=== PATIENT | male | born 1940 | race Caucasian/White ===

== ENCOUNTER → 2021-03-09 | Day surgery (SDC) | payer MEDICARE, OTHER ==
[~2021-03-09] MED LIST: ARANESP10 MCG/0.4; ASA81BEC PO; CARVEDILOL12.5 MG PO; COREG6.25 MG PO; EYLEA2 MG/0.01 EA. EYE; HYDRALAZINE 5050 MG PO; JANUVIA25 MG PO; LISINOPRIL10 MG PO; NORCO5 PO; NORVASC5 MG PO; OMEGA 3 1,0001 EACH PO; REFRESH CLASSI1 EACH EA. EYE; SODIUM BICARBO650 M3 PO; TORSEMIDE5 MG PO; TRAVATAN Z2.5 ML EA. EYE; TYLENOL 8 HOUR650 MG PO; VELTASSA8.4 GM PO; VISION FORMULA1 EAC1 PO; ZETIA10 MG PO
--- NOTE | ~2021-03-09 | OP ---
[facility] [address] [place] [address] OPERATIVE REPORT Name: ROBINSON SMALLWOOD Room: [facility]#: [id number] Admission: 03/09/21 Attend Phys: Monico Dash Discharge: Date of : 38 Report #: [id number] THIS REPORT FOR: cc: Otis Clifton Gregory DO Patterson,Monico Wright MD ~ DOC #: [id number] Monico Dash MD DATE OF SURGERY: 03/09/2021 PREOPERATIVE DIAGNOSIS: End-stage renal disease. POSTOPERATIVE DIAGNOSIS: End-stage renal disease. PROCEDURE: Laparoscopic placement of tunneled intraperitoneal catheter. SURGEON: Monico Dash MD. ANESTHESIA: General. ESTIMATED BLOOD LOSS: Minimal. SPECIMEN: None. DESCRIPTION OF PROCEDURE: After informed consent was obtained, the patient was brought to the operating room and placed supine. SCDs were placed and working, preoperative antibiotics were administered, general anesthesia was induced. The abdomen was prepped and draped in the usual sterile fashion. A 5 mm incision was made in the left upper quadrant. A 5 mm trocar was placed under direct vision. Pneumoperitoneum was established. A left-sided 5 mm trocar was placed under direct vision. I placed an 8 mm trocar in the left rectus sheath above the umbilicus. A 62 cm Covidien catheter was then placed through the 8 mm trocar. The catheter was then pulled back and the trocar was removed so that the internal cuff sat in the rectus sheath. The CO2 was then released. Catheter was then tunneled to the left upper quadrant of the abdomen. Catheter flushed easily with 700 mL of heparinized saline. It drained 300 mL easily. The skin was then closed with 4-0 Monocryl. Incisions were dressed with Steri-Strips and a sterile occlusive dressing was placed over the catheter. COMPLICATIONS: None. DISPOSITION: The patient was taken to recovery in satisfactory condition. MD ETIENNE Wiley/[place] [address] OPERATIVE REPORT Name: ROBINSON SMALLWOOD Room: [facility]#: [id number] Admission: 03/09/21 Attend Phys: Monico Dash Discharge: Date of : 38 Report #: [id number] By: [id number] Dash MD /jaime
[2021-03-09 08:24] LABS: HEMOGLOBIN 9.1 gm/dL (14.0-18.0); MCH 32.7 pg (26.0-34.0); MCHC 32.6 g/dL (28.0-37.0); MCV 100.4 fL (80.0-100.0); MPV 9.2 fl. (7.2-11.1); RBC 2.78 mil/uL (4.50-6.00); RDW-CV 16.3 % (10.5-14.5); WBC 5.9 thou/uL (4.0-11.0)
[2021-03-09 08:33] LABS: CALCIUM 8.1 mg/dL (8.5-10.1); CREATININE 5.6 mg/dL (0.6-1.3); POTASSIUM 5.2 mmol/L (3.5-5.1)
--- NOTE | 2021-03-09 17:29 | EKG ---
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: [place] : 1940 Requested By: Monico Dash Order Number: [id number] MD: Tamir Johnston Measurements Intervals [place] Rate: 61 P: 56 [place]: 139 QRS: 33 QRSD: 98 T: 39 QT: 431 QTc: 434 Interpretive Statements Sinus rhythm Possible left ventricular hypertrophy No previous ECG available for comparison Electronically Signed On 03-09-2021 17:28:57 CDT by Tamir Johnston [email or web address] <ELECTRONICALLY SIGNED> By: Tamir Johnston MD, [facility] 03/09/21 1728 [id number] [id number] Tamir Johnston MD, [facility] /EPI
== END | disposition home or self-care (01) ==
LOC: M.SUR 05:55
PROVIDERS: ATTEND Surgery
DX: I12.0 Hypertensive chronic kidney disease with stage 5 chronic kidney disease or end stage renal disease (principal); E11.22 Type 2 diabetes mellitus with diabetic chronic kidney disease; N18.6 End stage renal disease; I51.9 Heart disease, unspecified; Z98.890 Other specified postprocedural states; Z79.899 Other long term (current) drug therapy; Z87.891 Personal history of nicotine dependence; Z95.1 Presence of aortocoronary bypass graft; Z87.19 Personal history of other diseases of the digestive system

== ENCOUNTER → 2021-03-30 | Day surgery (SDC) | payer MEDICARE, OTHER ==
[~2021-03-30] MED LIST changes: +AMOXICILLIN 50500 MG PO; +FLOMAX0.4 MG PO
--- NOTE | ~2021-03-30 | OP ---
[facility] [address] [place] [address] OPERATIVE REPORT Name: ROBINSON SMALLWOOD Room: [facility]#: [id number] Admission: 03/30/21 Attend Phys: Monico Dash Discharge: Date of : 38 Report #: [id number] THIS REPORT FOR: cc: Otis Clifton Gregory DO Patterson, Jonathan D. MD ~ DOC #: [id number] Monico Dash MD DATE OF SURGERY: 03/30/2021 PREOPERATIVE DIAGNOSIS: Malfunctioning peritoneal catheter. POSTOPERATIVE DIAGNOSIS: Malfunctioning peritoneal catheter. OPERATION: Diagnostic laparoscopy and revision of peritoneal catheter with removal of obstructed material. SURGEON: Dr. Monico Dash. ANESTHESIA: General. ESTIMATED BLOOD LOSS: Minimal. SPECIMENS: None. DESCRIPTION OF PROCEDURE: After informed consent was obtained, the patient was brought to the operating room and placed supine. SCDs were placed and working, preoperative antibiotics were administered, general anesthesia was induced. The abdomen was prepped and draped in the usual sterile fashion. A 5 mm incision was made in the left upper quadrant. A 5 mm trocar was placed under direct vision. Pneumoperitoneum was established. Left-sided 5 mm trocar was placed. The catheter was trapped in some bowel around the umbilicus. Catheter was easily pulled out from this. It was placed down in the pelvis. I then used a 2-0 Vicryl suture with a I suture passer to hold the catheter in place in the pelvis. The catheter was then flushed and drained easily. 500 mL of heparinized normal saline was left in the abdomen. The ports were then removed under direct vision. The skin was closed with 4-0 Monocryl. Incisions were dressed with a sterile gauze. COMPLICATIONS: None. DISPOSITION: The patient was taken to recovery in satisfactory condition. MD ETIENNE Wiley/[place] [address] OPERATIVE REPORT Name: WILLIAM SMALLWOODMIE Cristina Room: [facility]#: [id number] Admission: 03/30/21 Attend Phys: Monico Dash Discharge: Date of : 38 Report #: [id number] By: [id number] Dash MD /jaime
[2021-03-30 06:27] LABS: HEMATOCRIT 29.8 % (42.0-52.0); HEMOGLOBIN 9.8 gm/dL (14.0-18.0); MCH 33.4 pg (26.0-34.0); MCV 101.3 fL (80.0-100.0); MPV 8.7 fl. (7.2-11.1); RBC 2.94 mil/uL (4.50-6.00); RDW-CV 14.4 % (10.5-14.5); WBC 6.5 thou/uL (4.0-11.0)
[2021-03-30 06:35] LABS: CALCIUM 8.1 mg/dL (8.5-10.1); CREATININE 6.3 mg/dL (0.6-1.3); POTASSIUM 4.9 mmol/L (3.5-5.1)
== END | disposition home or self-care (01) ==
LOC: M.SUR 06:04
PROVIDERS: Anesthesiology; ATTEND Surgery
DX: T85.691A Other mechanical complication of intraperitoneal dialysis catheter, initial encounter (principal); I12.9 Hypertensive chronic kidney disease with stage 1 through stage 4 chronic kidney disease, or unspecified chronic kidney disease; E11.22 Type 2 diabetes mellitus with diabetic chronic kidney disease; N18.6 End stage renal disease; Z98.890 Other specified postprocedural states; Z79.899 Other long term (current) drug therapy; Z88.8 Allergy status to other drugs, medicaments and biological substances; Y83.8 Other surgical procedures as the cause of abnormal reaction of the patient, or of later complication, without mention of misadventure at the time of the procedure

== ENCOUNTER 2021-07-03 11:01 | Inpatient (IN) | payer MEDICARE, OTHER ==
[~2021-07-03] VITALS: Ht 177.8 cm; Wt 77.9 kg
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
[2021-07-03 11:03] VITALS: BP 146/69
[2021-07-03 11:33] LABS: ABSOLUTE EOSINOPHILS 0.3 thou/uL (0.0-0.7); ABSOLUTE LYMPHOCYTES 2.2 thou/uL (0.8-5.3); ABSOLUTE MONOCYTES 1.1 thou/uL (0.0-1.2); ABSOLUTE NEUTROPHILS 4.2 thou/uL (1.6-8.1); BASOPHILS 0.6 %; EOSINOPHILS 4.2 %; HEMATOCRIT 35.7 % (42.0-52.0); HEMOGLOBIN 11.5 gm/dL (14.0-18.0); LYMPHOCYTES 28.4 %; MCH 29.1 pg (26.0-34.0); MCHC 32.2 g/dL (28.0-37.0); MCV 90.2 fL (80.0-100.0); MONOCYTES 13.6 %; MPV 9.3 fl. (7.2-11.1); NUCLEATED RBCS 0 /100WBC; PLATELET COUNT* 171 thou/uL (150-400); POLYS 53.2 %; RBC 3.96 mil/uL (4.50-6.00); RDW-CV 16.8 % (10.5-14.5); WBC 7.8 thou/uL (4.0-11.0)
[2021-07-03 11:50] LABS: CALCIUM 8.4 mg/dL (8.5-10.1); CREATININE 7.4 mg/dL (0.6-1.3); POTASSIUM 4.8 mmol/L (3.5-5.1)
[2021-07-03 11:54] LABS: ALBUMIN 2.7 g/dL (3.4-5.0); TOTAL BILIRUBIN 0.4 mg/dL (<0.1-1.0); TOTAL PROTEIN 6.4 g/dL (6.4-8.2)
[2021-07-03 17:38] LABS: AMP/METHAMP Negative (Negative); BARBITURATES Negative (Negative); BENZODIAZEPINES Negative (Negative); COCAINE Negative (Negative); METHADONE Negative (Negative); OPIATES Negative (Negative); PCP Negative (Negative); THC Negative (Negative)
[2021-07-03 19:42] VITALS: BP 153/65
[2021-07-03 20:00] VITALS: BP 145/61
[2021-07-04] VITALS (8 sets, daily range): BP systolic 115–147; BP diastolic 49–67
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
--- NOTE | 2021-07-04 09:39 | NUR ---
ASSUMED CARE OF PT THIS AM AROUND 0715- ENGINEERING LABORATORY TECHNICIAN IN PLACE ORDERED, TRACING SR- UPON ASSESSMENT PT NOTED TO BE RESTING IN BED, WATCHING TV- PT A&O X4- CONT OF B/B- UP SBA WITH TRANSFERS FOR SAFETY- LCTA, RESP EVEN AND UN-LABORED- VSS, O2 SAT 95% ON RA- ABD SOFT/ROUND/NON-TENDER, BS X4 QUADS- LAST BM REPORTED 07/03/21- PT REPORTS DISCOMFORT TO LEFT RIBS R/T FALL, BUT IS NOT CONCERNED WITH IT-CARDIO HERE TO ASSESS THIS AM, ORTHO STATS ORDERED- PT REPORTED TO NOT BE TO CONCERNED WITH FINDINGS AND IS REQUESTING TO BE D/C'D, DESPITE CARDIO EDUCATION- GOOD PO INTAKE NOTED THIS AM WITH BREAKFAST, BS MONITORED ORDERED- CALL LIGHT AND PERSONAL BELONGINGS WITH IN REACH- PT MAKES NEEDS KNOWN- ALL NEEDS MET AT THIS TIME
--- NOTE | 2021-07-05 11:37 | EKG ---
[place] [address] ELECTROCARDIOGRAM REPORT Name: ROBINSON SMALLWOOD Room: [address] IN [place]..#: [id number] Admission: 07/03/21 Attend Phys: Julienne Fink, Discharge: 07/04/21 Date of : 38 Date of Service: 07/03/21 1104 Report #: [id number] THIS REPORT FOR: //name// [facility] ED Test Date: 2021-07-03 Test Time: 11:04:46 Pat Name: ROBINSON SMALLWOOD Department: Room: 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 : 1940 Requested By: Ronnie Padron Order Number: [id number] MD: Clyde De La Fuente Measurements Intervals [place] Rate: 62 P: 51 VT: 141 QRS: 42 QRSD: 98 T: 75 QT: 428 QTc: 435 Interpretive Statements Sinus rhythm Multiple ventricular premature complexes Left ventricular hypertrophy Baseline wander in lead(s) I,II,aVR,V6 Compared to ECG 03/09/2021 07:59:07 Ventricular premature complex(es) now present Electronically Signed On 07-05-2021 11:37:22 CDT by Clyde De La Fuente [email or web address] <ELECTRONICALLY SIGNED> By: Clyde De La Fuente MD, [facility] 07/05/21 1137 1104 1104 Clyde De La Fuente MD, [facility] /EPI
--- NOTE | 2021-07-05 11:38 | EKG ---
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 : 1940 Requested By: Ronnie Padron Order Number: [id number] MD: Clyde De La Fuente Measurements Intervals [place] Rate: 76 P: 66 WI: 139 QRS: 50 QRSD: 98 T: 54 QT: 414 QTc: 466 Interpretive Statements Sinus rhythm Multiple ventricular premature complexes Left ventricular hypertrophy Compared to ECG 07/03/2021 11:04:46 ST (T wave) deviation no longer present Myocardial infarct finding no longer present Electronically Signed On 07-05-2021 11:38:04 CDT by Clyde De La Fuente [email or web address] <ELECTRONICALLY SIGNED> By: Clyde De La Fuente MD, [facility] 07/05/21 1138 1302 1302 Clyde De La Fuente MD, [facility] /EPI
== END 2021-07-04 11:55 | disposition home or self-care (01) | DRG 312 ==
LOC: M.ERS 11:01 → M.TBA-ER 14:05 → M.2W 14:05
PROVIDERS: Emergency Medicine Emergency Medical Services; ADMIT Internal Medicine; ATTEND Internal Medicine
DX: I95.1 Orthostatic hypotension (principal); N18.6 End stage renal disease; I12.0 Hypertensive chronic kidney disease with stage 5 chronic kidney disease or end stage renal disease; R10.9 Unspecified abdominal pain; Z20.822 Contact with and (suspected) exposure to COVID-19; Z79.899 Other long term (current) drug therapy; Z95.1 Presence of aortocoronary bypass graft; Z99.2 Dependence on renal dialysis; I25.10 Atherosclerotic heart disease of native coronary artery without angina pectoris; I70.298 Other atherosclerosis of native arteries of extremities, other extremity; I25.2 Old myocardial infarction; E78.5 Hyperlipidemia, unspecified